=== PATIENT | female | born 1975 | race Caucasian/White ===

== ENCOUNTER → 2020-05-15 | Outpatient (CLI) | payer BC ==
--- NOTE | 2020-05-15 13:31 | RAD ---
INDICATION: Reason: LT LEG LUMP/PAIN/SWELLING / Spl. Instructions: / History: COMPARISON: None. TECHNIQUE: Grayscale, color and doppler ultrasound images were obtained of the left lower extremity v enous vasculature. LEFT: No thrombus identified in the common femoral vein, femoral vein, popliteal vein. There is a thrombus within the distal left posterior tibial vein as well as within a varicose vein at the medial calf IMPRESSION: * Thrombus within a varicose vein as well as posterior tibial vein. Report was called to the [facility] provider's office at 1:25 PM on date of exam Electronically signed by: Kwan Hodgson MD (05/15/2020 1:29 PM) [id number]
== END ==
LOC: US 12:47
PROVIDERS: ATTEND Nurse Practitioner Adult Health
DX: I82.812 Embolism and thrombosis of superficial veins of left lower extremity (principal)
CPT/HCPCS: 93971

== ENCOUNTER 2020-05-28 14:32 | Emergency (ER) | payer BC ==
[~2020-05-28] VITALS: Ht 177.8 cm; Wt 117.4 kg
[2020-05-28 14:32] VITALS: BP 122/83
[2020-05-28 15:15] LABS: BASO % 1 % (0-3); EOS # 0.2 x10^3/uL (0.0-0.7); EOS % 3 % (0-3); HEMOGLOBIN 14.1 g/dL (12.0-15.5); LYMPH # 2.3 x10^3/uL (1.0-4.8); LYMPH % 38 % (24-48); MEAN CORPUSCULAR HEMOGLOBIN 30 pg (25-35); MEAN CORPUSCULAR HGB CONC 33 g/dL (31-37); MEAN CORPUSCULAR VOLUME 91 fL (79-100); MONO # 0.5 x10^3/uL (0.0-1.1); MONO % 8 % (0-9); NEUT # 3.1 x10^3uL (1.8-7.7); NEUT % 52 % (31-73); PLATELET COUNT 356 x10^3/uL (140-400); RED BLOOD COUNT 4.71 x10^6/uL (3.50-5.40); WHITE BLOOD COUNT 6.1 x10^3/uL (4.0-11.0)
--- NOTE | 2020-05-28 15:22 | RAD ---
Chest AP portable at 1503: Reason for examination: Chest pain. The heart size is normal. Mediastinum is unremarkable. Lung khan show a nodule in the right lower l obe which appears to be calcified. No congestion or infiltrates or pleural effusions are seen. No acu te bony abnormalities are seen. Impression: Nodule in the right lower lobe which appears to be calcified. No acute cardiopulmonary disease. Electronically signed by: Batsheva Cast MD (05/28/2020 3:20 PM) JERMAIN
--- NOTE | 2020-05-28 15:43 | PHYS DOC ---
Past History Past Medical History: DVT, Hypothyroid Past Surgical History: Cholecystectomy, , Gastric Bypass Alcohol Use: None General Adult EDM: Chief Complaint: CHEST PAIN HPI: HPI: Patient is a 45-year-old female who presented to ER due to chest pain, having trouble breathing and dizziness since yesterday. Patient was diagnosed with DVT in her left leg 2 weeks ago, she is currently on Eliquis. Patient denies any cough or fever. Patient denies any history of coronary artery disease. Patient denies any abdominal pain, no nausea vomiting. Review of Systems: Review of Systems: Constitutional: Denies fever or chills Eyes: Denies change in visual acuity HENT: Denies nasal congestion or sore throat Respiratory: Denies cough, positive for trouble breathing Cardiovascular: Positive for chest pain GI: Denies abdominal pain, nausea, vomiting, bloody stools or diarrhea : Denies dysuria Musculoskeletal: Denies back pain or joint pain Integument: Denies rash Neurologic: Denies headache, focal weakness or sensory changes Endocrine: Denies polyuria or polydipsia Lymphatic: Denies swollen glands Psychiatric: Denies depression or anxiety Allergies: Allergies: Allergies Coded Allergies Type Severity Reaction Last Updated Verified albuterol Allergy Unknown 05/28/20 Yes Physical Exam: PE: Constitutional: Well developed, well nourished, no acute distress, non-toxic appearance. Obese HENT: Normocephalic, atraumatic, bilateral external ears normal, oropharynx moist, no oral exudates, nose normal. [] Eyes: PERRLA, EOMI, conjunctiva normal, no discharge. [] Neck: Normal range of motion, no tenderness, supple, no stridor. [] Cardiovascular:Heart rate regular rhythm, no murmur [] Lungs & Thorax: Bilateral breath sounds clear to auscultation [] Abdomen: Bowel sounds normal, soft, no tenderness, no masses, no pulsatile masses. [] Skin: Warm, dry, no erythema, no rash. [] Back: No tenderness, no CVA tenderness. [] Extremities: No tenderness, no cyanosis, no clubbing, ROM intact, no edema. [] Neurologic: Alert and oriented X 3, normal motor function, normal sensory function, no focal deficits noted. [] Psychologic: Affect normal, judgement normal, mood normal. [] Current Patient Data: Labs: Laboratory Tests Test 2/9/21 14:43 White Blood Count 6.1 x10^3/uL (4.0-11.0) Red Blood Count 4.71 x10^6/uL (3.50-5.40) Hemoglobin 14.1 g/dL (12.0-15.5) Hematocrit 43.0 % (36.0-47.0) Mean Corpuscular Volume 91 fL (79-100) Mean Corpuscular Hemoglobin 30 pg (25-35) Mean Corpuscular Hemoglobin Concent 33 g/dL (31-37) Red Cell Distribution Width 13.0 % (11.5-14.5) Platelet Count 356 x10^3/uL (140-400) Neutrophils (%) (Auto) 52 % (31-73) Lymphocytes (%) (Auto) 38 % (24-48) Monocytes (%) (Auto) 8 % (0-9) Eosinophils (%) (Auto) 3 % (0-3) Basophils (%) (Auto) 1 % (0-3) Neutrophils # (Auto) 3.1 x10^3uL (1.8-7.7) Lymphocytes # (Auto) 2.3 x10^3/uL (1.0-4.8) Monocytes # (Auto) 0.5 x10^3/uL (0.0-1.1) Eosinophils # (Auto) 0.2 x10^3/uL (0.0-0.7) Basophils # (Auto) 0.0 x10^3/uL (0.0-0.2) Vital Signs: Vital Signs Date Time Temp Pulse Resp B/P (MAP) Pulse Ox O2 Delivery O2 Flow Rate FiO2 05/28/20 14:32 98.3 65 18 122/83 (96) 99 Room Air EKG: EKG: EKG was done at 2:43 PM, heart rate 77 bpm, sinus rhythm, no ST segment elevation. Radiology/Procedures: Radiology/Procedures: [][address] [id number] IMAGING REPORT Signed PATIENT: RAJ GIBSON ACCOUNT: [id number] : 1975 LOCATION: ER AGE: 45 SEX: F EXAM STATUS: REG ER ORD. PHYSICIAN: DREW CALVO DO REASON: CHEST PAIN PROCEDURE: PORTABLE CHEST 1V Chest AP portable at 1503: Reason for examination: Chest pain. The heart size is normal. Mediastinum is unremarkable. Lung khan show a nodule in the right lower lobe which appears to be calcified. No congestion or infiltrates or pleural effusions are seen. No acute bony abnormalities are seen. Impression: Nodule in the right lower lobe which appears to be calcified. No acute cardio pulmonary disease. Electronically signed by: Batsheva Kulkarni MD (05/28/2020 3:20 PM) [facility] DICTATED AND SIGNED BY: BATSHEVA KULKARNI MD DATE: 05/28/20 9124 CC: MARGARETH SYKES MD; DREW CALVO DO ~MTH0 [address] [id number] IMAGING REPORT Signed PATIENT: RAJ GIBSON ACCOUNT: [id number] : 1975 LOCATION: ER AGE: 45 SEX: F EXAM STATUS: REG ER ORD. PHYSICIAN: DREW CALVO DO REASON: chest pain, soa, dizziness, DVT currently OMNI 350 100CC PROCEDURE: CT ANGIOGRAPHY CHEST Exam: CT of chest with contrast INDICATION: Chest pain TECHNIQUE: Sequential axial images through the chest obtained following the administration of 100 mL of Omni 350 IV contrast. Sagittal and coronal reformatted images were reconstructed from the axial data and reviewed. 3-D reformatted images were reconstructed from the axial data and reviewed. Comparisons: Visualized portions of the thyroid FINDINGS: Visualized portions of the thyroid are unremarkable. No enlarged mediastinal lymph nodes. Heart size is normal. No pericardial effusion. Thoracic aorta has a normal course and caliber. Pulmonary artery is not enlarged. No pulmonary embolus identified within the main, lobar or segmental pulmonary arteries. Airways are patent. No consolidation or pneumothorax. No suspicious lung nodules are identified. No pleural thickening. Visualized upper abdomen is unremarkable. No suspicious osseous lesions or acute fractures. IMPRESSION: No pulmonary embolus identified within the main, lobar or segmental pulmonary arteries. Exposure: One or more of the following in the visualized dose reduction techniques were utilized for this examination: 1. Automated exposure control 2. Adjustment of the MA and/or KV according to patient size 3. Use of iterative of reconstructive technique Electronically signed by: Fran Carlos MD (05/28/2020 4:35 PM) [facility] DICTATED AND SIGNED BY: FRAN CARLOS MD DATE: 05/28/20 1631 CC: MARGARETH SYKES MD; DREW CALVO DO ~MTH0 0 Heart Score: HEART Score for Chest Pain: HEART Score for Chest Pain Response (Comments) Value History Slighlty/Non-Suspicious 0 ECG Normal 0 Age >45 - < 65 1 Risk Factors 1 or 2 Risk Factors 1 Total 2 Risk Factors: Risk Factors: DM, Current or recent (<one month) smoker, HTN, HLP, family history of CAD, obesity. Risk Scores: Score 0 - 3: 2.5% MACE over next 6 weeks - Discharge Home Score 4 - 6: 20.3% MACE over next 6 weeks - Admit for Clinical Observation Score 7 - 10: 72.7% MACE over next 6 weeks - Early Invasive Strategies Course & Med Decision Making: Course & Med Decision Making Pertinent Labs and Imaging studies reviewed. (See chart for details) Patient is a 45-year-old female who presented to ER due to chest pain, trouble breathing, feeling dizzy, she is currently on Eliquis due to blood clot in her left leg. CT scan of the chest did not show evidence of PE, EKG and cardiac enzyme came back normal, will discharge home. Dragon Disclaimer: Dragradha Disclaimer: This electronic medical record was generated, in whole or in part, using a voice recognition dictation system. Departure Departure: Impression: Primary Impression: Chest pain Disposition: 01 DC HOME SELF CARE/HOMELESS Condition: STABLE Referrals: MARGARETH SYKES MD (PCP) Follow up with your doctor as needed next week Patient Instructions: Chest Pain (Nonspecific) DREW CALVO DO May 28, 2020 15:43
[2020-05-28 15:48] LABS: CALCIUM 8.9 mg/dL (8.5-10.1); POTASSIUM 4.7 mmol/L (3.5-5.1)
--- NOTE | 2020-05-28 15:57 | EKG ---
[address] [address] Test Date: 2020-05-28 Test Time: 14:40:10 Pat Name: RAJ GIBSON Department: Room: Gender: F Software Quality Manager: YOLANDA : 1975 Requested By: DREW CALVO Order Number: [id number] Reading MD: Chip Wright Measurements Intervals [place] Rate: 77 P: 56 MD: 156 QRS: 38 QRSD: 96 T: 38 QT: 374 QTc: 425 Interpretive Statements SINUS RHYTHM NORMAL ECG RI6.02 No previous ECG available for comparison Electronically Signed On 05-28-2020 16:24:04 COMMUNICATIONS PROGRAMMER by Chip Wright
[2020-05-28 16:00] LABS: ALBUMIN 2.9 g/dL (3.4-5.0); ALBUMIN/GLOBULIN RATIO 0.6 (1.0-1.7); TOTAL BILIRUBIN 0.4 mg/dL (0.2-1.0)
[2020-05-28] MEDS ORDERED: CONTRAST GIVEN. MC PRN (16:15)
[2020-05-28] MEDS ORDERED: IOHEXOL 350 MG/ML 100 ML VIAL. IV ONE (16:15)
--- NOTE | 2020-05-28 16:38 | RAD ---
Exam: CT of chest with contrast INDICATION: Chest pain TECHNIQUE: Sequential axial images through the chest obtained following the administration of 100 mL of Omni 350 IV contrast. Sagittal and coronal reformatted images were reconstructed from the axial da ta and reviewed. 3-D reformatted images were reconstructed from the axial data and reviewed. Comparisons: Visualized portions of the thyroid FINDINGS: Visualized portions of the thyroid are unremarkable. No enlarged mediastinal lymph nodes. Heart size is normal. No pericardial effusion. Thoracic aorta has a normal course and caliber. Pulmon joe artery is not enlarged. No pulmonary embolus identified within the main, lobar or segmental pulmo nary arteries. Airways are patent. No consolidation or pneumothorax. No suspicious lung nodules are identified. No pleural thickening. Visualized upper abdomen is unremarkable. No suspicious osseous lesions or acute fractures. IMPRESSION: No pulmonary embolus identified within the main, lobar or segmental pulmonary arteries. Exposure: One or more of the following in the visualized dose reduction techniques were utilized for this examination: 1. Automated exposure control 2. Adjustment of the MA and/or KV according to patient size 3. Use of iterative of reconstructive technique Electronically signed by: Fran Euceda MD (05/28/2020 4:35 PM) [facility]
== END 2020-05-28 17:39 | disposition home or self-care (01) ==
LOC: ER 14:32
DX: R07.9 Chest pain, unspecified (principal); R42 Dizziness and giddiness; E03.9 Hypothyroidism, unspecified; Z86.718 Personal history of other venous thrombosis and embolism; Z79.01 Long term (current) use of anticoagulants; Z98.84 Bariatric surgery status; Z88.8 Allergy status to other drugs, medicaments and biological substances
CPT/HCPCS: 36415; 71045; 71275; 80053; 83880; 84484; 85025; 93005; 99285; Q9967